=== PATIENT | female | born 1980 | race Caucasian/White ===

== ENCOUNTER 2024-06-21 13:23 | Outpatient (CLI) | payer MEDICARE, SELFPAY ==
--- NOTE | 2024-06-21 13:26 | MM_ITS ---
PROCEDURE INFORMATION: Exam: MG Bilateral Screening 3D Mammography Exam date and time: 06/21/2024 1:09 PM Age: 44 years old Clinical indication: Screening examination TECHNIQUE: Imaging protocol: Bilateral Screening tomosynthesis and 2D mammography including computer-aided detection (CAD) when performed. COMPARISON: No relevant prior studies available. FINDINGS: MAMMOGRAPHY: Breast composition: The breasts are almost entirely fatty. Mass: None. Architectural distortion: None. Calcifications: No suspicious calcifications. Asymmetric density: None. Skin thickening: None. Axillary adenopathy: None. IMPRESSION: No mammographic evidence of malignancy. Annual screening is recommended unless otherwise clinically indicated. ASSESSMENT: BI-RADS Category 1: Negative.
== END 2024-06-21 23:59 | disposition home or self-care (01) ==
LOC: RAD 13:24
PROVIDERS: PCP Nurse Practitioner Family; Visit Provider Nurse Practitioner Family
DX: Z12.31 Encounter for screening mammogram for malignant neoplasm of breast (principal)
CPT/HCPCS: 77063; 77067

== ENCOUNTER 2024-09-23 08:42 | Outpatient (CLI) | payer MEDICARE, SELFPAY ==
[2024-09-23 09:18] LABS: Basophils % 0.4 % (0.1-2.0); Eosinophils # 0.1 K/mm3 (0.0-0.4); Eosinophils % 1.3 % (0.1-12.0); Hematocrit 41.8 % (37.0-47.0); Hemoglobin 14.1 g/dL (12.2-16.2); Lymphocytes # 1.7 K/mm3 (0.7-4.5); Lymphocytes % 24.7 % (10-50); Mean Corpuscular HGB Conc 33.7 g/dL (31.8-35.4); Mean Corpuscular Hemoglobin 29.6 pg (27.0-31.2); Mean Corpuscular Volume 87.6 fl (81-99); Mean Platelet Volume 10.1 fl (7.4-10.4); Monocytes # 0.4 K/mm3 (0.1-1.0); Monocytes % 5.3 % (1.7-9.3); Neutrophils # 4.6 K/mm3 (1.8-7.8); Platelet Count 247 K/mm3 (142-424); Red Blood Count 4.77 M/mm3 (4.20-5.40); Red Cell Distribution Width 12.5 % (11.5-17.5); White Blood Count 6.7 K/mm3 (4.8-10.8)
[2024-09-23 09:45] LABS: Albumin Level 4.7 g/dl (3.5-5.0); Chloride 105 mmol/L (98-107)
[2024-09-23 09:46] LABS: Potassium 4.7 mmoL/L (3.5-5.1)
[2024-09-23 09:48] LABS: Alanine Aminotransferase 23 U/L (12-78); Aspartate Amino Transferase 25 U/L (14-36); Blood Urea Nitrogen 19 mg/dl (7-17); Carbon Dioxide 26 mmol/L (22.0-30.0); Estimated Glomerular Filt Rate 78 ml/min (>60); GFR (African American) 94 ML/MIN (>60)
[2024-09-23 09:49] LABS: Albumin/Globulin Ratio 1.9 (1.1-1.8); Alkaline Phosphatase 103 U/L (38-126); Bilirubin,Total 0.3 mg/dl (0.2-1.3); Calcium 9.6 mg/dl (8.4-10.2); Chol/HDL Ratio 4.7 (1-3.5); Cholesterol 236 mg/dl (140-200); Globulin 2.5 g/dL (1.3-3.2); Glucose 94 mg/dl (74-100); HDL Cholesterol 50 mg/dl (40-60); Total Protein,Serum 7.2 g/dl (6.3-8.2); Triglycerides 169 mg/dl (30-150); VLDL Cholesterol 34 mg/dL (0-40)
[2024-09-23 10:00] LABS: Direct LDL Cholesterol 152.81 mg/dL (100-129)
[2024-09-23 10:09] LABS: Anion Gap 11.7 mEq/L (5-15); Sodium 138 mmol/L (136-145)
[2024-09-23 10:17] LABS: Hemoglobin A1C 5.2 % (4.0-6.0)
[2024-09-23 10:20] LABS: Thyroid Stimulating Hormone 2.46 uIU/mL (0.465-4.68)
[2024-09-23 10:31] LABS: HIV Combo NEGATIVE (Negative)
[2024-09-26 17:15] LABS: HBsAg Screen Negative (Negative); HCV Ab Reactive (Non Reactive); Hep A Ab, IGM Negative (Negative); Hep B Core Ab, IgM Negative (Negative)
== END 2024-09-23 23:59 | disposition home or self-care (01) ==
LOC: LAB 08:45
PROVIDERS: PCP Internal Medicine Adolescent Medicine; Visit Provider Nurse Practitioner Family
DX: Z86.19 Personal history of other infectious and parasitic diseases (principal); R73.03 Prediabetes; E78.5 Hyperlipidemia, unspecified; R53.83 Other fatigue; F19.91 Other psychoactive substance use, unspecified, in remission
CPT/HCPCS: 36415; 80053; 80061; 80074; 83036; 84443; 85025; 87389

== ENCOUNTER 2024-11-15 09:23 | Emergency (ER) | payer MEDICARE, SELFPAY ==
[2024-11-15 09:24] VITALS: BP 150/95; PULSE 75; RESP 20; TEMP 36.5; O2SAT 98; BMI 33.7
[2024-11-15 10:02] VITALS: BP 153/94; PULSE 80; O2SAT 99
--- NOTE | 2024-11-15 10:08 | PC.NURSE ---
DR MAHMOOD AT BEDSIDE
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
[2024-11-15 10:32] VITALS: BP 150/95; PULSE 74; O2SAT 97
--- NOTE | 2024-11-15 11:17 | PC.NURSE ---
Myself and Christine Hutchinson tried to straight stick patient for blood, but we were both unsuccessful and asked maco the bowling ball finisher to take a look.
--- NOTE | 2024-11-15 11:37 | PC.NURSE ---
Patient straight stuck in L hand for lab work, all labs sent to lab. Patient also provided urine sample.
[2024-11-15 11:43] LABS: Basophils % 0.3 % (0.1-2.0); Eosinophils # 0.1 K/mm3 (0.0-0.4); Eosinophils % 1.9 % (0.1-12.0); Hematocrit 41.4 % (37.0-47.0); Hemoglobin 13.7 g/dL (12.2-16.2); Mean Corpuscular HGB Conc 33.1 g/dL (31.8-35.4); Mean Corpuscular Hemoglobin 29.5 pg (27.0-31.2); Mean Platelet Volume 10.3 fl (7.4-10.4); Monocytes # 0.3 K/mm3 (0.1-1.0); Monocytes % 3.9 % (1.7-9.3); Neutrophils # 4.5 K/mm3 (1.8-7.8); Neutrophils % 64.3 % (37.0-80.0); Platelet Count 225 K/mm3 (142-424); Red Blood Count 4.65 M/mm3 (4.20-5.40); Red Cell Distribution Width 12.9 % (11.5-17.5)
[2024-11-15 11:51] LABS: Alanine Aminotransferase 41 U/L (12-78); Albumin Level 4.9 g/dl (3.5-5.0); Albumin/Globulin Ratio 2.1 (1.1-1.8); Alkaline Phosphatase 82 U/L (38-126); Aspartate Amino Transferase 36 U/L (14-36); Bilirubin,Total 0.3 mg/dl (0.2-1.3); Blood Urea Nitrogen 11 mg/dl (7-17); Calcium 9.3 mg/dl (8.4-10.2); Carbon Dioxide 26 mmol/L (22.0-30.0); Chloride 108 mmol/L (98-107); Creatine Kinase 114 U/L (30-135); Creatinine Clearance Estimated 145 mL/min (50-200); Estimated Glomerular Filt Rate 91 ml/min (>60); GFR (African American) 110 ML/MIN (>60); Globulin 2.3 g/dL (1.3-3.2); Glucose 128 mg/dl (74-100); Sodium 142 mmol/L (136-145); Total Protein,Serum 7.2 g/dl (6.3-8.2)
[2024-11-15 11:52] LABS: Lactic Acid 1.7 mmol/L (0.7-2.1)
[2024-11-15 11:56] LABS: D-Dimer 0.26 ug/mL (0.0-0.5)
[2024-11-15 12:02] LABS: NT Pro Brain Natriuretic Pep. 23.8 pg/mL (0-125)
[2024-11-15 12:45] VITALS: BP 125/79; PULSE 98; RESP 20; TEMP 36.8; O2SAT 98
== END 2024-11-15 12:47 | disposition home or self-care (01) ==
PROVIDERS: Emergency Provider Emergency Medicine; PCP Internal Medicine Adolescent Medicine
DX: M54.50 Low back pain, unspecified (principal); M79.605 Pain in left leg; R22.42 Localized swelling, mass and lump, left lower limb
CPT/HCPCS: 80053; 82550; 83605; 83880; 85025; 85378; 99283

== ENCOUNTER 2024-11-25 07:39 | Outpatient (CLI) | payer MEDICARE, SELFPAY ==
--- NOTE | 2024-11-25 | CA_ITS ---
APPROVED REPORT EXAM: Comprehensive 2D, Doppler, and color-flow Echocardiogram [employer] Supervisor: Carlie Luque RT(R) Ht: 5 ft 6 in Wt: 196lbs BSA: 1.98 BP: 150/95 mmHg Indications: CP, smoker, palpitations, fatigue, edema, SOB, hyperlipidemia Echo Enhancing Agent Indication: Rule out Shunt Agent(s) / Amount(s) Used: Agitated Saline 20 cc 2D Dimensions LVEF (Dobbins's) 44.30 % F: 54 - 74 LV Volume 98.10 mL F: 46 - 106 LV Volume Index 49.5 mL/m2 F: 29 - 61 LA Volume 19.80 mL LA Volume Index 10.00 mL/m2 (M/F) 16-34 EF AP4 55.40 % EF AP2 40.8 % EF BP 44.3 % GL Strain -16.7 % M-Mode Dimensions RVDd 1.82 cm (0.9-2.6) LA Diam 2.98 cm (1.9-4.0) LVDd 4.51 cm (3.5-5.7) LVDs 3.40 cm (3.5-5.7) IVSd 0.82 cm (0.6-1.1) PWd 0.86 cm (0.6-1.1) EF (Teich) 49.00% FS 24.60% EDV (Teich) 92.90 mL ESV (Teich) 47.40 mL LV Diastology E Decel Time 177 (160-240 msec) E/A Ratio 1.2 Mitral Valve MV E Max Jose A. 82.0 (40-130 cm/s) MV A Velocity 66.0 (40-130 cm/s) E/A Ratio 1.24 MV PHT 52.0 ms Left Ventricle The left ventricle is normal size. The left ventricular systolic function is normal. The left ventricular ejection fraction is within the normal range. There is normal left ventricular wall thickness. There is normal LV segmental wall motion. The left ventricular diastolic function is normal. LVEF is 55%. Right Ventricle The right ventricle is normal size. The right ventricular systolic function is normal. Atria The left atrium size is normal. The right atrium size is normal. There is no Doppler evidence of interatrial shunt. Agitated saline administration demonstrates presence of interatrial shunt. Aortic Valve Aortic valve opens well. There is no aortic valvular stenosis. No aortic regurgitation is present. Mitral Valve The mitral valve is normal in structure. No evidence of mitral valve stenosis. Trace mitral regurgitation. Tricuspid Valve Tricuspid valve is grossly normal in structure and function. Trace tricuspid regurgitation. There is insufficient TR jet to estimate RVSP. Pulmonic Valve The pulmonary valve is normal in structure. Trace pulmonic regurgitation. Great Vessels The aortic root is normal in size. IVC is normal in size and collapses >50% with inspiration. Pericardium There is no pericardial effusion. Other Information Study Quality: Fair Conclusion Normal biventricular size and systolic function. No significant valvular stenosis or regurgitation. Agitated saline administration (bubble study) demonstrates presence of interatrial shunt. Electronically signed by : Smitha Beckham MD 12/04/2024 21:32:45
== END 2024-11-25 23:59 | disposition home or self-care (01) ==
LOC: RT 07:40
PROVIDERS: PCP Nurse Practitioner Family; Visit Provider Nurse Practitioner Family
DX: R60.0 Localized edema (principal); R06.02 Shortness of breath
CPT/HCPCS: 93306

== ENCOUNTER 2025-04-26 09:42 | Outpatient (CLI) | payer MEDICARE, SELFPAY ==
--- OUTSIDE RECORDS SUMMARY | 2025-03-07 07:15 | XMS_ITS ---
Author Organization [facility] Address [address] [facility] [address] [facility] [address] [place] [address] Care Team Providers Care Dewer Name Role Phone Ernesto Kenney Primary Care Provider Ernesto Kenney Unavailable Unavailable Alisha Yu Unavailable [phone] REASON FOR VISIT Med Ck Encounters Encounter Location Date Provider Diagnosis [facility] [address] [facility] [address] [place] [address] 03/07/2025 Alisha Yu Plan Of Treatment Next Appt Details Provider Name:Alisha Wood, 06/27/2025 08:30:00 AM, [address] [facility], [address], [place], [place], [address], Progress Notes * Marion MILLERDOB:[birth year] (44 yo F)Acc No.[id number]:03/07/2025 Progress Notes Patient: Marion DEAL Provider: Donald Yu APRN :1980 A ge:44 Y S ex:Female Date:03/07/2025 Address:[address] [place] Pcp:Ernesto Kenney Subjective: * Chief Complaints: * 1 . Med Ck. * Medical History: Objective: * Vitals: Assessment: Plan: * Treatment: * * Electronic signature of Nia Yu APRN on 04/26/2025 at 09:50 AM EDT Sign off status: Pending * Provider: Donald Yu APRN Date: 0 03/07/2025 Generated for Estela stiles/Bhavehs/Orion on: 0 04/26/2025 09:50 AM EDT
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
--- OUTSIDE RECORDS SUMMARY | 2025-04-05 09:23 | XMS_ITS | Encounter Summary ---
Author Organization Healthcare Address [address] [place] [address] Care Team Providers Care Independent Trader Name Role Phone Alisha Gutierrez MIGUEL Primary Care Provider [phone] Reason for Referral * Cardiac Stress Testing (Routine) - Closed Specialty Diagnoses / Procedures Referred By Contac t Referred To Contact Cardiology Diagnoses Palpitations Procedures Adult Patch Monitor - 14 Day Chester Nazario MD [address] [place] [address] Phone: tel: fax: Referral ID Status Reason Start Date Expiration Date Visits Re quested Visits Authorized [id number] Closed 04/05/2025 10/05/2026 1 1 Reason for Visit * Cardiac Stress Testing (Routine) - Closed Specialty Diagnoses / Procedures Referred By Crow munroe Referred To Contact Cardiology Diagnoses Palpitations Procedures Adult Patch Monitor - 14 Day Chester Nazario MD [address] [place] [address] Phone: tel: fax: Referral ID Status Reason Start Date Expiration Date Visits Re quested Visits Authorized [id number] Closed 04/05/2025 10/05/2026 1 1 Encounter Details Date Type Department Care Team (Latest Contact Info) Description 04/05/2025 9:23 AM EDT - 04/05/2025 11:59 PM EDT Hospital Encounter Cardiac Imaging [address] [place] [address] Palpitations Discharge Disposition: Home or Self Care Social History Tobacco Use Types Packs/Day Years Used Date Smoking Tobacco: Every Day Cigarettes Started: 2009 Smokeless Tobacco: Never Alcohol Use Standard Drinks/Week Comments Not Currently [...] on file documented as of this encounter Functional Status * Over the [...] Questionnaire -9 Score 0 04/05/2025 8:15 AM EDT Indy Ochoa * If you checked off any problems on this questionnaire so far, Question Answer Date of Assessment Author How difficult have these problems made it for you to do your work, take care of things at home, or get along with other people? Not difficult at all 04/05/2025 8:15 AM EDT Indy Ochoa documented as of this encounter Medications at Time of Discharge amitriptyline (Elavil) 75 MG tablet Take 1 tablet by mouth nightly. furosemide (Lasix) 20 MG tablet Take 1 tablet by mouth daily. gabapentin (Neurontin) 600 MG tablet Take 1 tablet by mouth 3 times a day. meloxicam (Mobic) 15 MG tablet Take 1 tablet by mouth daily. 07/28/2024 ondansetron ODT (Zofran-ODT) 4 MG disintegrating tablet Dissolve 1 tablet on the tongue every 8 hours as needed for vomiting or nausea. 04/15/2024 rosuvastatin (Crestor) 10 MG tablet Take 1 tablet by mouth daily. SUMAtriptan (Imitrex) 100 MG tablet Take 1 tablet by mouth 1 time as needed for migraine. 07/28/2024 documented as of this encounter Plan of Treatment Upcoming Encounters Date Type Department Care Team (Late st Contact Info) Description 05/12/2025 11:00 AM EDT Appointment [facility] Pulmonary Function Testing [address] [place] [address] 07/12/2025 12:45 PM EDT Office Visit [facility] [address] [facility] [place] [address] Chester Nazario MD [address] [place] [address] Pending Results Name Type Priority Associated Diagnoses Date /Time Adult Patch Monitor - 14 Day Cardiac Services Routine Palpitations 04/05/2025 9:39 AM EDT Scheduled Orders Name Type Priority Associated Diagnoses Orde r Schedule Adult Patch Monitor - 14 Day Cardiac Services Routine Palpitations Once for 1 Occurrences starting 04/05/2025 until 04/05/2025 documented as of this encounter Visit Diagnoses Diagnosis Palpitations documented in this encounter Additional Health Concerns Assessment Noted Time PHQ-9 Depression Total Score: 0 04/05/20 8:15 AM EDT A fall risk assessment has been complete d for the patient 04/05/2025 8:15 AM EDT A Body Mass Index follow-up plan has been documented for the patient 04/05/2025 10:32 AM EDT documented as of this encounter Care Teams Independent Trader Relationship Specialty Start Date End Date Alisha Gutierrez APRN [address] [place] [address] PCP - General 04/05/25 documented as of this encounter
--- OUTSIDE RECORDS SUMMARY | 2025-04-25 05:00 | XMS_ITS ---
Author Organization [facility] Address [address] [place] [address] Care Team Providers Care Card Checker Name Role Phone Ernesto Kenney Primary Care Provider [phone] Ernesto Kenney Unavailable Unavailable Alisha Yu Unavailable [phone] Allergies Allergen (clinical drug ingredient) Drug/Non Drug Allergy documented on EMR Reaction Allergy Type Onset Date Status naproxen Naproxen anaphylaxis Drug Allergy Activ e REASON FOR VISIT Possible sprained ankle, rolled foot off step about 4 weeks ago. Medications Medication SIG (Take, Route, Frequency, Duration) Notes Start Date End Date Status Gabapentin 600 MG 1 tab(s) orally 3 ti mes a day; Duration: 30 days 03/06/2025 Active Amitriptyline HCl 75 MG 1 tab(s) orally once a day (at bedtime); Duration: 90 days Active Meloxicam 15 MG 1 tablet Orally Once a day; Duration: 90 days 01/16/2025 Active Crestor 10 MG 1 tab(s) orally at night; Duration: 90 days 09/23/2024 Active Imitrex 100 MG 1 tab(s) orally Once a day; Duration: 30 days As needed PRN Active Furosemide 20 MG 1 tab(s) orally once a day; Duration: 90 days As needed 11/17/2024 Active Fluticasone Propionate 50 MCG/ACT 1 spray(s) in each nostril once a day; Duration: 30 days Active Allergy Relief (Cetirizine) 10 MG 1 tab(s) orally once a day; Duration: 90 days Active Social History Tobacco Use: Social History Observation Description Date Details (start date - stop date) Current Smoker NA - NA Tobacco Control (Standard) Question Answer Notes Tobacco use: Current smoker How many cigarettes a day do you smoke? 6-10 Vital Signs Temperature 98.0 degrees Fahrenheit 04/25/20 25 Blood pressure systolic 126 mm Hg 04/25/20 25 Blood pressure diastolic 84 mm Hg 025 Heart Rate 72 /min 04/25/2025 Height 5ft 6in in 04/25/2025 Weight 187 lbs 04/25/2025 BMI 30.18 kg/m2 04/25/2025 Encounters Encounter Location Date Provider Diagnosis [facility] [address] [place] [address] 04/25/2025 Alisha Yu Acute left ankle pain M25.572 and Acute pain of left foot M79.672 Assessments Encounter Date Diagnosis (ICD Code) Assessment Notes Treatment Notes Treatment Clinical Notes Section Notes 04/25/2025 Acute left ankle pain (ICD-10 - M25.572) Likely related to ankle sprain. Given her point tenderness on medial malleolus on 1st MP will obtain xray Rest, ice, elevate, brace and meloxicam as above. Okay to use tylenol prn. Will evaluate xray and refer as indicated 04/25/2025 Acute pain of left foot (ICD-10 - M79.672) Plan Of Treatment Treatment Notes Assessment Notes Acute left ankle pain Likely related to ankle sprain. Given her point tenderness on medial malleolus on 1st MP will obtain xray Rest, ice, elevate, brace and meloxicam as above. Okay to use tylenol prn. Will evaluate xray and refer as indicated Pending Test Test Name Order Date X ray : Ankle, Left 04/25/2025 X ray : Foot, Left 04/25/2025 Next Appt Details Follow Up: prn, Reason: Provider Name:Alisha Gutierrez Francisco Daly, 06/27/2025 08:30:00 AM, [address], [address], [place], [address], Progress Notes * Aristides MILLER:[birth year] (44 yo F)Acc No.[id number]:04/25/2025 Progress Notes Patient: Marion DEAL Provider: Donald Yu APRN :1980 A ge:44 Y S ex:Female Date:04/25/2025 Address:[place], [id number] Pcp:Ernesto Kenney Subjective: * Chief Complaints: * 1 . Possible sprained ankle, rolled foot off step about 4 weeks ago.. * HPI: A nkle/Foot: Presents with left medial ankle pain that began 4 weeks ago when she rolled her ankle stepping down off a step. Acute onset of pain. No improvement since onset. Worse with ambulation and at the end of the day. + numbness/tingling left 3rd- 5th toes. * ROS: C ONSTITUTIONAL: no L oss of appetite. n o F ever. N EUROLOGY: Tingling numbness y es, l eft 3rd-5th toes. ? * Medical History: M igraine, MDD, Anxiety and Depression, Renal Failure, sepsis, Prediabetes, Kidney Stones. * Surgical History: L eft Ankle 2001, Right Leg BKA 2004, Total Hysterectomy 2011, Nerve Stimulator implanted and then removed 2009, Left Knee Scar Tissue Removal 2006. * Hospitalization/Major Diagno stic Procedure: [facility] , [facility] , [facility] . * Family History: F ather: unknown. M other: alive. P aternal Grand Father: unknown. P aternal Grand Mother: unknown. M aternal Grand Father: . M aternal Grand Mother: . P aternal uncle: unknown. P aternal aunt: unknown. M aternal uncle: alive. M aternal aunt: alive. S iblings: alive, High Cholesterol. 1 sister(s) - healthy. 1 daughter(s) . . * Social History: R ecreational drug use: yes, Past use: Previously. Exercise: no. Home smoke detector use: yes. Caffeine: yes, frequency: Daily. Alcohol: no. Sexually active: yes. Travel outside [place]: no. Occupation: Employed. Tobacco Control (Standard) T obacco use: C urrent smoker, H ow many cigarettes a day do you smoke? 6 -10. * Medications: T aking Fluticasone Propionate 50 MCG/ACT Suspension 1 spray(s) in each nostril once a day , Taking Allergy Relief (Cetirizine) 10 MG Tablet 1 tab(s) orally once a day , Taking Imitrex 100 MG Tablet 1 tab(s) orally Once a day As needed, Notes to Pharmacist: PRN, Taking Crestor 10 MG Tablet 1 tab(s) orally at night , Taking Gabapentin 600 MG Tablet 1 tab(s) orally 3 times a day , Taking Meloxicam 15 MG Tablet 1 tablet Orally Once a day , Taking Amitriptyline HCl 75 MG Tablet 1 tab(s) orally once a day (at bedtime) , Taking Furosemide 20 MG Tablet 1 tab(s) orally once a day As needed, Discontinued Erythromycin 5 MG/GM Ointment 1 andrew in each affected eye 4 times a day , Discontinued Lidocaine 5 % Patch 1 to 2 patches remove after 12 hours Externally Once a day As needed, Medication List reviewed and reconciled with the patient * Allergies: N aproxen: anaphylaxis. Objective: * Vitals: N urse: be, Pain: 3, Temp: 98.0, RR: 16, HR: 72, BP: 126/84, Ht: 5ft 6in, Wt: 187, BMI:30.18. * Examination: G eneral Examination: General P leasant and Cooperative, NAD on RA,. Neurologic Exam: s ensation intact. Skin: w ithout acute rashes. Peripheral pulses: n ormal (2+) bilaterally. Extremities: L eft ankle with medial swelling and tenderness all aspects of joint line, medial malleolus and 1st MT, pain with flexion, extension, inversion, eversion. Psych N ormal Mood/Affect. Assessment: * Assessment: 1. A cute left ankle pain - M25.572 (Primary) 2 . A cute pain of left foot - M79.672 Plan: * Treatment: Notes: Likely related to ankle sprain. Given her point tenderness on medial malleolus on 1st MP will obtain xray Rest, ice, elevate, brace and meloxicam as above. Okay to use tylenol prn. Will evaluate xray and refer as indicated??2.?Acute pain of left foot?Imaging: X ray : Foot, Left* * Follow Up: p rn * * Sign off status: Completed true * Provider: Donald Yu APRN Date: 0 04/25/2025 Generated for Estela stiles/Bhavesh/eTransmitting on: 0 04/26/2025 09:50 AM EDT History and Physical Notes * HPI (History of Present Illness) Category Sub-Category Detail Notes Category Not es Ankle/Foot Presents with l eft medial ankle pain that began 4 weeks ago when she rolled her ankle stepping down off a step. Acute onset of pain. No improvement since onset. Worse with ambulation and at the end of the day. + numbness/tingling left 3rd-5th toes Examination Category Sub-Category Detail Notes Category Not es General Examination Extremities: Left ankle w ith medial swelling and tenderness all aspects of joint line, medial malleolus and 1st MT, pain with flexion, extension, inversion, eversion Skin: without acute rashes Neurologic Exam: sensation intact Peripheral pulses: normal (2+) bilatera lly General Pleasant and Coopera tive, NAD on RA, Psych Normal Mood/Affect
--- OUTSIDE RECORDS SUMMARY | 2025-04-26 09:50 | XMS_ITS | Patient Health Record ---
Author Organization [facility] Address [address] [place] [address] Care Team Providers Care Director Of Customer Acquisition Name Role Phone Ernesto Kenney Primary Care Provider [phone] Ernesto Kenney Unavailable Unavailable Alisha Yu Unavailable [phone] Migration, Provider Unavailable Unavailable Allergies Allergen (clinical drug ingredient) Drug/Non Drug Allergy documented on EMR Reaction Allergy Type Onset Date Status naproxen Naproxen anaphylaxis Drug Allergy Activ e Results Component Value Reference Range Notes H-HIVC Reviewed date:09/23/2024 11:36:09 AM Interpretation: Performing Lab: Notes/Report: HIVC NEGATIVE Negative All initial positives will be confirmed by 2 retests, if still positive they will be confirmed by [facility] Sendout. H-HEPACUTE Reviewed date:09/27/2024 03:07:15 PM Interpretation: Performing Lab: Notes/Report: The quantitative range of this assay is 15 IU/mL to 100 Positive HCV antibody screen without the presence of HCV million IU/mL. RNA is consistent with a resolved past infection or a false positive HCV antibody. Consider repeat testing after one month. Performed at: [facility] [address] [id number] Electric Freight Car Operator: Emiliano Bonilla PhD, Phone: [phone] Performed at: [facility] [address] [id number] Electric Freight Car Operator: Jazmin Raman MD, Phone: [phone] HEPAM Negative Negative A negative anti-HAV IgM result suggests no recent or current HAV infection. HBSAG Negative Negative HBCM Negative Negative HCVAB2 Reactive Non Reactive HCQ HCV Not Detected . IU/mL MEDtub43 Test not performed . IU/mL TESTINFO Comment . HCVINT1 Comment . B TYPE NATRIURETIC PEPTIDE ( BNP) (16274) Reviewed date:11/18/2024 02:29:05 PM Interpretation: Performing Lab:[facility] [id number] Whyd, Manohar [id number] Kang Sheriff Notes/Report: NON-FASTING; NON-FASTING B TYPE NATRIURETIC PEPTIDE (BNP) 6 <100 pg/mL BNP levels increase with age in the general population with the highest values seen in individuals greater than 75 years of age. Reference: J. Am. Krystal. Cardiol. 2002; 40:976-982. HEMOGLOBIN A1c (496) Reviewed date:11/18/2024 02:29:05 PM Interpretation: Performing Lab:[facility] [id number] [address] Whyd, [facility] [id number] Kang Sheriff Notes/Report: NON-FASTING; NON-FASTING HEMOGLOBIN A1c 5.4 <5.7 % of total Hgb For the purpose of screening for the presence of diabetes: <5.7% Consistent with the absence of diabetes 5.7-6.4% Consistent with increased risk for diabetes (prediabetes) > or =6.5% Consistent with diabetes This assay result is consistent with a decreased risk of diabetes. Currently, no consensus exists regarding use of hemoglobin A1c for diagnosis of diabetes in children. According to [place] [employer] (ADA) guidelines, hemoglobin A1c <7.0% represents optimal control in non- diabetic patients. Different metrics may apply to specific patient populations. Standards of Medical Care in Diabetes(ADA). COMPREHENSIVE METABOLIC PANE L (28693) Reviewed date:11/18/2024 02:29:05 PM Interpretation: Performing Lab:[facility] [id number] [address] [facility], [place] [id number] Kang Sheriff Notes/Report: NON-FASTING; NON-FASTING GLUCOSE 97 65-99 mg/dL Fasting reference interval UREA NITROGEN (BUN) 12 7-25 mg/dL CREATININE 0.85 0.50-0.99 mg/dL EGFR 87 > OR = 60 mL/min/1.73m2 BUN/CREATININE RATIO SEE NOTE: 6-22 (calc) Not Reported: BUN and Creatinine are within reference range. SODIUM 140 135-146 mmol/L POTASSIUM 4.1 3.5-5.3 mmol/L CHLORIDE 104 98-110 mmol/L CARBON DIOXIDE 26 20-32 mmol/L CALCIUM 9.7 8.6-10.2 mg/dL PROTEIN, TOTAL 6.9 6.1-8.1 g/dL ALBUMIN 4.6 3.6-5.1 g/dL GLOBULIN 2.3 1.9-3.7 g/dL (calc) ALBUMIN/GLOBULIN RATIO 2.0 1.0-2.5 (calc) BILIRUBIN, TOTAL 0.4 0.2-1.2 mg/dL ALKALINE PHOSPHATASE 97 31-125 U/L AST 21 10-30 U/L ALT 28 6-29 U/L M-Thyroid Stimulating Hormon e Reviewed date:09/23/2024 11:36:09 AM Interpretation: Performing Lab: Notes/Report: TSH 2.46 0.465-4.68 uIU/mL M-Lipid Panel Reviewed date:09/23/2024 11:36:09 AM Interpretation: Performing Lab: Notes/Report: Patient Fasting? Y TRIG 169 30-150 mg/dl CHOL 236 140-200 mg/dl DLDL 152.81 100-129 mg/dL VLDL 34 0-40 mg/dL HDL 50 40-60 mg/dl CHLHDL 4.7 1-3.5 M-Hemoglobin A1C Reviewed date:09/23/2024 11:36:09 AM Interpretation: Performing Lab: Notes/Report: HGBA1C 5.2 4.0-6.0 % < 6% Non-Diabetic Level < 7% Controlled Diabetic Level > 8% Poorly Controlled Diabetic Level M-Comprehensive Metabolic Pa quang Reviewed date:09/23/2024 11:36:09 AM Interpretation: Performing Lab: Notes/Report: NA 138 136-145 mmol/L K 4.7 3.5-5.1 mmoL/L CL 105 98-107 mmol/L CO2 26 22.0-30.0 mmol/L GAP 11.7 5-15 mEq/L BUN 19 7-17 mg/dl CREATT 0.80 0.52-1.04 mg/dl GFRAA 94 >60 ML/MIN EGFR 78 >60 ml/min GLU 94 74-100 mg/dl CA 9.6 8.4-10.2 mg/dl BILIT 0.3 0.2-1.3 mg/dl AST 25 14-36 U/L ALT 23 12-78 U/L TP 7.2 6.3-8.2 g/dl ALB 4.7 3.5-5.0 g/dl GLOB 2.5 1.3-3.2 g/dL AGRATIO 1.9 1.1-1.8 ALP 103 38-126 U/L M-Complete Blood Count Auto Diff Reviewed date:09/24/2024 11:18:01 AM Interpretation: Performing Lab: Notes/Report: WBC 6.7 4.8-10.8 K/mm3 RBC 4.77 4.20-5.40 M/mm3 HGB 14.1 12.2-16.2 g/dL HCT 41.8 37.0-47.0 % MCV 87.6 81-99 fl MCH 29.6 27.0-31.2 pg MCHC 33.7 31.8-35.4 g/dL RDW 12.5 11.5-17.5 % PLT 247 142-424 K/mm3 MPV 10.1 7.4-10.4 fl NE% 68.0 37.0-80.0 % LY% 24.7 10-50 % MO% 5.3 1.7-9.3 % EO% 1.3 0.1-12.0 % BA% 0.4 0.1-2.0 % NE# 4.6 1.8-7.8 K/mm3 LY# 1.7 0.7-4.5 K/mm3 MO# 0.4 0.1-1.0 K/mm3 EO# 0.1 0.0-0.4 K/mm3 BA# 0.0 0-0.2 K/mm3 Reason For Referral Reason Echo Diagnosis 1 Leg edema (R60.0) Referral Organization [facility] Referring Provider First Name Alisha Referring Provider Last Name Aimee Referring Provider Speciality Family Pra ctice Referred Organization [facility] Referred Address [address],[address],[place] Referred Provider Specialty Diagnostic R adiology General Notes Taryn Rascon 2024 05:11:52 PM >faxed to [facility] to schedule Referral Priority Routine Referral Appointment Date 11/25/[address] Nazario [facility] Diagnosis 1 ASD (atrial septal d efect) (Q21.10) Referral Organization [facility] Referring Provider First Name Alisha Referring Provider Last Name Aimee Referring Provider Speciality Family [facility] Referred Organization Referrals Referred Address [address] [place],[address],[place] Referred Provider Specialty Cardiovascul ar Disease General Notes Taryn Rascon 2024 02:30:33 PM >placed through [facility], Taryn Rascon 02/22/2025 03:01:21 PM >sent again! Called [facility] and they could see the referral but it hadn't moved in their dept. They canceled it and started all over. Marked STAT Taryn Rascon 02/24/2025 02:27:15 PM >Scheduled 04/05/2025 8:15 AM [facility] Chester Nazario MD Consult-Card Referral Priority Routine Referral Appointment Date 04/05/2025 Medications Medication SIG (Take, Route, Frequency, Duration) Notes Start Date End Date Status Gabapentin 600 MG 1 tab(s) orally 3 ti mes a day; Duration: 30 days 03/06/2025 Active Amitriptyline HCl 75 MG 1 tab(s) orally once a day (at bedtime); Duration: 90 days Active Meloxicam 15 MG 1 tablet Orally Once a day; Duration: 90 days 01/16/2025 Active Furosemide 20 MG 1 tab(s) orally once a day; Duration: 90 days As needed 11/17/2024 Active Fluticasone Propionate 50 MCG/ACT 1 spray(s) in each nostril once a day; Duration: 30 days Active Allergy Relief (Cetirizine) 10 MG 1 tab(s) orally once a day; Duration: 90 days Active Crestor 10 MG 1 tab(s) orally at night; Duration: 90 days 09/23/2024 Active Imitrex 100 MG 1 tab(s) orally Once a day; Duration: 30 days As needed PRN Active Immunizations Vaccine Route Administration Date Status Comme nts Boostrix IM Intramuscular 08/23/2024 Administered Social History Tobacco Use: Social History Observation Description Date Details (start date - stop date) Current Smoker NA - NA Tobacco Control (Standard) Question Answer Notes Tobacco use: Current smoker How many cigarettes a day do you smoke? 6-10 Problems Problem Type SNOMED Code ICD Code Onset Dates Problem Status W/U Status Risk Notes Problem Primary insomnia (6160661) Primary insomnia (F51.01) Active confirmed Problem Mixed anxiety and depressive disorder (770061380) Depression with anxiety (F41.8) Active confirmed Problem Neuropathy (818016475) Neuropathy (G62.9) Active confirmed Problem Seasonal allergy (817238195) Seasonal allergies (J30.2) Active confirmed Problem Migraine with aura (1154436) Migraine with aura and without status migrainosus, not intractable (G43.109) Active confirmed Problem Hyperlipidaemia (05588881) Hyperlipidemia, unspecified hyperlipidemia type (E78.5) Active confirmed Problem Tobacco use (993803326) Tobacco use disorder (F17.200) Active confirmed Problem Amputated below knee (506501254) 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) Active confirmed Problem Atrial septal defect (disorder) (93269136) ASD (atrial septal defect) (Q21.10) Active confirmed Vital Signs Heart Rate 72 /min 04/25/2025 Temperature 98.0 degrees Fahrenheit 04/25/2025 Blood pressure diastolic 84 mm Hg 04/25/2025 Height 5ft 6in in 04/25/2025 Blood pressure systolic 126 mm Hg 04/25/2025 Weight 187 lbs 04/25/2025 BMI 30.18 kg/m2 04/25/2025 Encounters Encounter Location Date Provider Diagnosis [facility] [address] [facility] [address] [place], [place] [address] 12/17/2024 Provider Migration Hordeolum externum of left upper eyelid H00.014 [facility] [address] [place], [place] [address] 08/23/2024 Alisha Yu Encounter for Medica re annual wellness exam Z00.00 ; Migraine with aura and without status migrainosus, not intractable G43.109 ; Primary insomnia F51.01 ; Neuropathy G62.9 ; Depression with anxiety F41.8 ; Hx of right BKA Z89.511 ; Seasonal allergies J30.2 ; Encounter for immunization Z23 ; Prediabetes R73.03 ; Hyperlipidemia, unspecified hyperlipidemia type E78.5 ; Fatigue, unspecified type R53.83 ; History of hepatitis C Z86.19 ; History of drug use F19.91 and Tobacco use disorder F17.200 [facility] [address] [place] [address] 10/04/2024 Alisha McNees Neuropathy G62.9 ; H x of right BKA Z89.511 and History of drug use F19.91 [facility] [address] [place] [address] 11/17/2024 Alisha McNees Leg edema R60.0 ; Shortness of breath R06.02 and Hyperglycemia R73.9 [facility] [address] [place] [address] 12/06/2024 Alisha McNees ASD (atrial septal defect) Q21.10 and Hordeolum externum of left upper eyelid H00.014 [facility] [address] [address] 03/06/2025 Alisha McNees Migraine with aura a nd without status migrainosus, not intractable G43.109 ; Primary insomnia F51.01 ; Neuropathy G62.9 ; Hx of right BKA Z89.511 ; Seasonal allergies J30.2 ; Hyperlipidemia, unspecified hyperlipidemia type E78.5 ; History of drug use F19.91 and Tobacco use disorder F17.200 [facility] [address] [place] [address] 04/25/2025 Alisha McNees Acute left ankle alexander n M25.572 and Acute pain of left foot M79.672 [facility] [address] [place] [address] 08/16/2024 Ernesto Kenney [facility] [address] [place] [address] 09/23/2024 Alisha McNees [facility] [address] [place] [address] 03/06/2025 Alisha McNees Leg edema R60.0 [facility] [address] [place] [address] 08/29/2024 Alisha McNees [facility] [address] [place] [address] 11/30/2024 Alisha McNees [facility] [address] [place] [address] 12/22/2024 Alisha McNees Seasonal allergies J30.2 [facility] [address] [place] [address] 12/22/2024 Alisha McNees Leg edema R60.0 [facility] [address] [place] [address] 12/28/2024 Ernesto Kenney [facility] [address] [place] [address] 01/16/2025 Alisha McNees Seasonal allergies J30.2 [facility] [address] [place] [address] 01/29/2025 Alisha McNees [facility] [address] [place] [address] 02/08/2025 Alisha McNees Leg edema R60.0 Assessments Encounter Date Diagnosis (ICD Code) Assessment Notes Treatment Notes Treatment Clinical Notes Section Notes 08/23/2024 Migraine with aura and without status migrainosus, not intractable (ICD-10 - G43.109) Well controlled on triptan, uses rarely. Discussed hydration and need for regular, balanced meals, outdoor activities/exercis e and trigger (sunlight) etc - avoidance. Discussed using abortive meds rarely 08/23/2024 Encounter for Medicare annual wellness exam (ICD-10 - Z00.00) Mammogram UTD Tdap updated today Declines flu shot Pap- hysterectomy Will return to office for fasting labs 11/17/2024 Leg edema (ICD-10 - R60.0) ED records reviewed. Discussed weight gain, some may be from fluid but not likely the cause of all of it based on her exam. Will obtain echo and labs today. Start low dose lasix prn. Discussed need for diet, exercise. RTC in 2-3 weeks 12/06/2024 Hordeolum externum of left upper eyelid (ICD-10 - H00.014) Reassurance that this is not pink eye. Treatment is typically supportive care only with warm compresses, however given the upper lid swelling will start topical abx.. Should self-resolve within a few days. Discussed worsening signs/symptoms that would warrant further follow-up. 12/06/2024 ASD (atrial septal defect) (ICD-10 - Q21.10) LE edema improved with Lasix Echo revealed interatrial shunt, likely incidental finding but could be cause of SOA. Refer to Dr. Nazario for further recommendations. 12/17/2024 Hordeolum externum of left upper eyelid (ICD-10 - H00.014) 12/22/2024 Seasonal allergies (ICD-10 - J30.2) 12/22/2024 Leg edema (ICD-10 - R60.0) 01/16/2025 Seasonal allergies (ICD-10 - J30.2) 02/08/2025 Leg edema (ICD-10 - R60.0) 03/06/2025 Primary insomnia (ICD-10 - F51.01) Well controlled, no changes 10/04/2024 Neuropathy (ICD-10 - G62.9) Patient is chronically disabled restricting work hours to 32 hours per week. She may require accommodations for extending standing, walking given her BKA/neuropathy. No formal accommodations recommended today. FU in office is need for accommodations occurs. Paperwork for [employer] employment services completed, disability letter restricting hours written. 10/04/2024 Hx of right BKA (ICD-10 - Z89.511) 11/17/2024 Shortness of breath (ICD-10 - R06.02) 03/06/2025 Migraine with aura and without status migrainosus, not intractable (ICD-10 - G43.109) Well controlled on triptan, uses rarely. Discussed hydration and need for regular, balanced meals, outdoor activities/exercis e and trigger (sunlight) etc - avoidance. Discussed using abortive meds rarely 03/06/2025 Leg edema (ICD-10 - R60.0) 04/25/2025 Acute left ankle pain (ICD-10 - M25.572) Likely related to ankle sprain. Given her point tenderness on medial malleolus on 1st MP will obtain xray Rest, ice, elevate, brace and meloxicam as above. Okay to use tylenol prn. Will evaluate xray and refer as indicated 04/25/2025 Acute pain of left foot (ICD-10 - M79.672) 10/04/2024 History of drug use (ICD-10 - F19.91) Currently in remission. Resides in sober living housing program, attends meetings several days a week and follows with counselor. 03/06/2025 Neuropathy (ICD-10 - G62.9) At baseline on mobic and gabapentin. CSA UTD and on chart. Aftab report reviewed and is appropriate - discussed ongoing use of controlled medication and safety associated with these medications. Add lidocaine patches prn 08/23/2024 Primary insomnia (ICD-10 - F51.01) Well controlled, no changes 08/23/2024 Neuropathy (ICD-10 - G62.9) At baseline on mobic and gabapentin. CSA signed and placed on chart. Aftab report reviewed and is appropriate - discussed ongoing use of controlled medication and safety associated with these medications 11/17/2024 Hyperglycemia (ICD-10 - R73.9) 03/06/2025 Hx of right BKA (ICD-10 - Z89.511) 08/23/2024 Depression with anxiety (ICD-10 - F41.8) Managing well without medications at this time. Keep appointment with counselor. 03/06/2025 Seasonal allergies (ICD-10 - J30.2) Well controlled 03/06/2025 Hyperlipidemia, unspecified hyperlipidemia type (ICD-10 - E78.5) On statin, no myalgias. Continue crestor, low saturated fat diet 08/23/2024 Hx of right BKA (ICD-10 - Z89.511) 03/06/2025 History of drug use (ICD-10 - F19.91) See above 08/23/2024 Seasonal allergies (ICD-10 - J30.2) Reassurance no acute infection, start allergy meds as above 08/23/2024 Encounter for immunization (ICD-10 - Z23) 03/06/2025 Tobacco use disorder (ICD-10 - F17.200) Smoking cessation counseling provided 08/23/2024 Prediabetes (ICD-10 - R73.03) Will check A1c and treat as indicated 08/23/2024 Hyperlipidemia, unspecified hyperlipidemia type (ICD-10 - E78.5) Reports elevated cholesterol in the past. Will check fasting lipid panel and treat as indicated 08/23/2024 Fatigue, unspecified type (ICD-10 - R53.83) Chronic, intermittent. Likely benign, will check labs to r/o HIV, Hepatitis, DM, thyroid disease, anemia, etc 08/23/2024 History of hepatitis C (ICD-10 - Z86.19) Repeat hepatitis and HIV testing ordered for confirmation. Continue drug treatment program, counseling 08/23/2024 History of drug use (ICD-10 - F19.91) See above 08/23/2024 Tobacco use disorder (ICD-10 - F17.200) Smoking cessation counseling provided Plan Of Treatment Pending Test Test Name Order Date X ray : Ankle, Left 04/25/2025 X ray : Foot, Left 04/25/2025 Echocardiogram 11/17/2024 HIV 1/2 ANTIGEN/ANTIBODY,FOURTH GENERATI ON W/RFL (16413) 08/23/2024 LIPID PANEL, STANDARD (7600) 08/23/2024 HEPATITIS PANEL, ACUTE W/REFLEX TO CONFI RMATION (52658) 08/23/2024 COMPREHENSIVE METABOLIC PANEL (64878) CBC (INCLUDES DIFF/PLT) (6399) HEMOGLOBIN A1c (496) 08/23/2024 TSH (899) 08/23/2024 Next Appt Details Provider Name:Alisha Wood, 06/27/2025 08:30:00 AM, [address], [place], [address], Insurance Providers Payer Name Payer Address Payer Phone Subscriber Number Group Number Insured Name Patient Relationship to Insured Coverage Start Date Coverage End Date [place]IC[place] [address] [place] [address] [id number] Marion Hendrickson Self - patient is the insured Medical (General) History Medical History History ICD Code Migraine MDD Anxiety and Depression Renal Failure, sepsis Prediabetes Kidney Stones Surgical History Surgery Date(Month/Year) Left Ankle 2002 Right Leg BKA 2005 Total Hysterectomy 2012 Nerve Stimulator implanted and then kodi jeremias 2009 Left Knee Scar Tissue Removal 2007 [facility]
--- NOTE | 2025-04-26 09:51 | XR_ITS ---
FINAL REPORT CLINICAL HISTORY: ACUTE PAIN and swelling FINDINGS: LEFT ANKLE Three views demonstrate no acute fracture or dislocation. There are severe degenerative changes with complete loss of the joint space. Old avulsion fractures are seen of the medial and lateral malleolus. The visualized joint spaces are normally aligned. The soft tissues are unremarkable. IMPRESSION: Degenerative changes without acute bony abnormality. Reviewed, Interpreted and Dictated by Jael Dawson MD Transcribed by Libby Peralta Authenticated and [facility]
--- NOTE | 2025-04-26 09:51 | XR_ITS ---
FINAL REPORT CLINICAL HISTORY: pain and swelling FINDINGS: LEFT FOOT Three views of the left foot demonstrate no acute fracture or dislocation. The visualized joint spaces are normally aligned. The soft tissues are unremarkable. IMPRESSION: No acute bony abnormality. Reviewed, Interpreted and Dictated by Jael Dawson MD Transcribed by Libby Peralta Authenticated and [facility]
--- OUTSIDE RECORDS SUMMARY | 2025-04-26 09:51 | XMS_ITS | Encounter Summary ---
Author Organization Healthcare Address [address] [id number] Care Team Providers Care Compressor Operator Adjuster Name Role Phone Alisha Gutierrez APRN Primary Care Provider [phone] Encounter Details Date Type Department Care Team (Latest Contact Info) Description 04/05/2025 Travel Social History Tobacco Use Types Packs/Day Years [...] Not at all 04/05/2025 8: 15 AM EDT Indy Ochoa Feeling bad about yourself - or that you are a failure or have let yourself or your family down Not at all 04/05/2025 8:15 AM EDT Indy Flores Trouble concentrating on thi ngs, such as [...] Indy Torres documented as of this encounter Plan of Treatment Upcoming Encounters Date Type Department Care Team (Late st Contact Info) Description 05/12/2025 11:00 AM EDT Appointment [facility] Pulmonary Function Testing [address] [place] [address] 07/12/2025 12:45 PM EDT Office Visit [facility] [place] [address] [facility] [place] [address] Chester Nazario MD [address] [place] [id number] documented as of this encounter Visit Diagnoses Not on filedocumented in this encounter Additional Health Concerns Assessment Noted Time PHQ-9 Depression Total Score: 0 04/05/20 8:15 AM EDT A fall risk assessment has been complete d for the patient 04/05/2025 8:15 AM EDT A Body Mass Index follow-up plan has been documented for the patient 04/05/2025 10:32 AM EDT documented as of this encounter Care Teams Compressor Operator Adjuster Relationship Specialty Start Date End Date Alisha Gutierrez, POWDER CUTTING OPERATOR [address] [place] [address] PCP - General 04/05/25 documented as of this encounter
--- OUTSIDE RECORDS SUMMARY | 2025-04-26 09:51 | XMS_ITS | Clinical Summary ---
Author Organization Healthcare Address [address] [place] [address] Care Team Providers Care Forklift Technician Name Role Phone Alisha Gutierrez APRN Primary Care Provider [phone] Allergies Active Allergy Reactions Criticality Noted Date Comments Naproxen Unknown - Patient st ates they do not know rxn details Low 05/11/2024 Medications amitriptyline (Elavil) 75 MG tablet Take 1 tablet by mouth nightly. Active gabapentin (Neurontin) 600 MG tablet Take 1 tablet by mouth 3 times a day. Active meloxicam (Mobic) 15 MG tablet Take 1 tablet by mouth daily. 4 Active ondansetron ODT (Zofran-ODT) 4 MG disintegrating tablet Dissolve 1 tablet on the tongue every 8 hours as needed for vomiting or nausea. 4 Active SUMAtriptan (Imitrex) 100 MG tablet Take 1 tablet by mouth 1 time as needed for migraine. 4 Active rosuvastatin (Crestor) 10 MG tablet Take 1 tablet by mouth daily. Active furosemide (Lasix) 20 MG tablet Take 1 tablet by mouth daily. Active Active Problems No known active problems Encounters Date Type Department Care Team Description 04/05/2025 9:23 AM EDT - 04/05/2025 11:59 PM EDT Hospital Encounter Cardiac Imaging [address] [place] [address] Palpitations Discharge Disposition: Home or Self Care 04/05/2025 8:15 AM EDT Office Visit [facility] [address] [place] [address] Chester Nazario MD Abnormal finding on echocardiogram (Primary Dx); Palpitations; Shortness of breath; Tobacco abuse 04/05/2025 Travel 02/09/2025 Telephone [facility] [place] [address] [facility] [address] None, None HCN - Patient Message from Last 3 Months Immunizations Immunization Administration Dates Next Due Tdap 08/23/2024 Family History Medical History Relation Name Comments Heart disease Maternal Grandfather Relation Name Status Comments Maternal Grandfather Social History Tobacco Use Types Packs/Day Years [...] on file Sexual Orientation Not on file Last Filed Vital Signs Vital Sign Reading [...] Mass Index 30 04/05/2025 8:13 AM EDT Plan of Treatment Upcoming Encounters Date Type Department Care Team (Late st Contact Info) Description 05/12/2025 11:00 AM EDT Appointment [facility] Pulmonary Function Testing [address] [place] [address] 07/12/2025 12:45 PM EDT Office Visit [facility] [place] [address] [facility] [phone] Chester Nazario MD [address] [place] [address] Health Maintenance Due Date Last Done Comments [facility]-HIV Screening 1980 [facility]-Hepatitis C Screening 1980 [facility]-Medicare Annual Wellness (AWV) 1980 [facility]-Infant/Child/Adol SDOH Screenings 1980 [facility]-Varicella Vaccines (1 of 2 - 13+ 2-dose series) 1993 [facility]- SDOH Screenings 1998 [facility]-Adult SDOH Screenings 1998 [facility]-Hepatitis B Vaccines (1 of 3 - 19+ 3-dose series) 1999 [facility]-Pneumococcal Vaccine: Pediatrics (0 to 5 Years) and At-Risk Patients (6 to 49 Years) (1 of 2 - PCV) 1999 [facility]-Pap Smear 2001 HPV Vaccines (1 - 3-dose SCD M series) 2007 [facility]-Cervical Cancer Screening 2010 [facility]-HPV/Cotest 2010 [id number] Vaccine (1 - 2023- season) 2024 [facility]-Influenza Vaccine (#1) 2025 [facility]-Depression Screening 04/05/2026 025, 04/05/2025 [facility]-Zoster Vaccines (1 of 2) 2030 [facility]-DTaP,Tdap,and Td Vaccine s (2 - Td or Tdap) 08/23/2034 08/23/2024 [facility]-Obesity Intervention Completed 04/05/2025 [facility]-HIB Vaccines Aged Out No longer e ligible based on patient's age to complete this topic [facility]-Hepatitis A Vaccines Aged Out No longer eligible based on patient's age to complete this topic [facility]-IPV Vaccines Aged Out No longer e ligible based on patient's age to complete this topic [facility]-Rotavirus Vaccines Aged Out No lo nger eligible based on patient's age to complete this topic Insurance MEDICARE Member Subscriber Plan / Payer (Ef fective 2009-Present) Name:Marion Hendrickson Member ID:[id number] Relation to Subscriber:Self Name:Marion Hendrickson Subscriber ID:[id number] Payer ID:MEDICARE Group ID:Not on file Type:Medicare Address: [place] [phone] Care Teams Forklift Technician Relationship Specialty Start Date End Date Alisha Gutierrez APRN [address] [facility] [address] [place] [address] PCP - General 04/05/25
--- OUTSIDE RECORDS SUMMARY | 2025-04-26 09:51 | XMS_ITS | Encounter Summary ---
Author Organization Healthcare Address [address] [place] [address] Care Team Providers Care Wedding Decorator Name Role Phone Pcp, No Primary Care Provider Unavailabl e Reason for Visit * Reason Onset Date Comments HCN - Patient Message 02/09/2025 Encounter Details Date Type Department Care Team (Late st Contact Info) Description 02/09/2025 Telephone [facility] [address] [place] [address] None, None [address] [place] [address] HCN - Patient Message Social History Tobacco Use Types Packs/Day Years Used Date Smoking Tobacco: Never Assessed Comments Unknown Sex and Gender Information Value Date Recorded Sex Assigned at Not on file Legal Sex Female 2:31 PM EDT Gender Identity Not on file Sexual Orientation Not on file documented as of this encounter Miscellaneous Notes * Telephone Encounter - [place] - 02/24/2025 10:01 AM EDT Called patient and scheduled for next available Aravind appt * Telephone Encounter - Carmen H[place] - 02/09/2025 10:48 AM EDT Clinical Concern/Question 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 Referring office calling about referral placed 12/[address] Aravind Crump contact number: Jessi Rascon in referring office at [phone] Optimal time of day to reach caller: ANYTIME Additional comments/information from caller: Note: Please do not reply to this message. Follow-up communication and further actions as a result of this message need to be communicated with the patient directly, if the patient is not active onMyChart. If the patient is active on MyChart, they will receive notification of the communication/outcome via MyChart. documented in this encounter Plan of Treatment Upcoming Encounters Date Type Department Care Team (Late st Contact Info) Description 05/12/2025 11:00 AM EDT Appointment [facility] Pulmonary Function Testing [address] [place] [address] 07/12/2025 12:45 PM EDT Office Visit [facility] [address] [facility] [place] [address] Chester Nazario MD [address] [place] [address] documented as of this encounter Visit Diagnoses Not on filedocumented in this encounter Care Teams Wedding Decorator Relationship Specialty Start Date End Date Pcp, No [address] [place] [address] PCP - General Family Medicine 04/26/24 04/04/25 documented as of this encounter
--- OUTSIDE RECORDS SUMMARY | 2025-04-26 09:51 | XMS_ITS | Encounter Summary ---
Author Organization Healthcare Address [address] [place] [address] Care Team Providers Care Surveillance Officer Name Role Phone Pcp, No Primary Care Provider Unavaildevi e Alisha Gutierrez HOT PUNCH PRESS OPERATOR Primary Care Provider [phone] Reason for Referral * Consultation (Routine) - Authorized Specialty Diagnoses / Procedures Referred By Crow munroe Referred To Contact Cardiology Diagnoses ASD (atrial septal defect) Alisha Gutierrez APRN [address] [address] Phone: tel: fax: Chester Nazario MD [address] [place] [address] Phone: tel: fax: Referral ID Status Reason Start Date Expiration Date Visits Requested Visits Authorized [id number] Authorized Specialty Services Required 12/07/2024 06/08/2026 1 1 Encounter Details Date Type Department Care Team (Late st Contact Info) Description 12/07/2024 Community Orders Community Practice [address] [place] [address] Alisha Gutierrez HOT PUNCH PRESS OPERATOR [address] [place] [address] ASD (atrial septal defect) (Primary Dx) Social History Tobacco Use Types Packs/Day Years Used Date Smoking Tobacco: Never Assessed Comments Unknown Sex and Gender Information Value Date Recorded Sex Assigned at Not on file Legal Sex Female 2:31 PM EDT Gender Identity Not on file Sexual Orientation Not on file documented as of this encounter Plan of Treatment Upcoming Encounters Date Type Department Care Team (Late st Contact Info) Description 05/12/2025 11:00 AM EDT Appointment [facility] Pulmonary Function Testing [address] [place] [phone] 07/12/2025 12:45 PM EDT Office Visit [facility] [address] [facility] [place] [address] Chester Nazario MD [address] [place] [phone] Scheduled Referrals Name Type Priority Associated Diagnoses Order Schedule Ambulatory referral to [facility] Outpatient Referral Routine ASD (atrial septal defect) Ordered: 12/07/2024 documented as of this encounter Visit Diagnoses Diagnosis ASD (atrial septal defect)- Primary Ostium secundum type atrial septal defect documented in this encounter Care Teams Surveillance Officer Relationship Specialty Start Date End Date Pcp, No [address] [place] [address] PCP - General Family Medicine 04/26/24 04/04/25 Alisha Gutierrez, HOT PUNCH PRESS OPERATOR [address] [facility] [address] [place] [address] PCP - General 04/05/25 documented as of this encounter
== END 2025-04-26 23:59 | disposition home or self-care (01) ==
LOC: RAD 09:48
PROVIDERS: PCP Nurse Practitioner Family; Visit Provider Nurse Practitioner Family
DX: M19.072 Primary osteoarthritis, left ankle and foot (principal); M79.672 Pain in left foot; R60.9 Edema, unspecified
CPT/HCPCS: 73610; 73630

== ENCOUNTER 2025-06-30 06:53 | Outpatient (CLI) | payer MEDICARE, MEDICAID, SELFPAY ==
--- OUTSIDE RECORDS SUMMARY | 2024-08-03 04:30 | XMS_ITS | Continuity of Care Document ---
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 index [BMI] 28.0-28.9, adult Dietary Instructions for a healthy weight: BMI should be between the range of 18.5-24.9 for an adult; and Caloric intake should be around 3429-3584 for a female, and 1231-4866 for an adult male. Fiber intake should be about 14 grams for 1000 calories per day. That is about 20-30 grams daily. Good sources of fiber are oatmeal, fortified grains, and green leafy vegetables, apples. You can also use Carbohydrate counting to maintain a healthy weight. One serving is equal to 15 grams (1 piece of bread, small fruit, or 1 cup of milk). Men should have 45-75, Women about 30-65 per meal, and snacks are recommend to be 13-30 grams each. Myplate.gov is a good source for meal planning and dietary education. You may also refer to the [place] [employer] website for further low sodium, health heart diet information. Mediterainian diet would be a suitable diet for your current health conditions. Related to Body mass index [BMI] 27.0-27.9, adult It is recommended to stop smoking/vaping to increase overall health and decrease risk of cardiovascular disease. If you wish to stop smoking/vaping, there is a free online [place] from smoking course offered through our local health department. You may call [phone] for more information. Related to Nicotine dependence, cigarettes, uncomplicated Understands that he/ she is unlikely to ever be pain free. Patient has tried and failed non-opiate analgesic therapies. Goal of medication is to improve quality of life and perform ADLS. Patient is aware of the risks associated with controlled medications; including, but not limited to, dependence, addiction, and even . Aware of the importance of only taking medications as prescribed. AMY reports scanned into the patients record are reviewed and appropriate. Urine drug testing results are appropriate. Aware that any further increase in medication strength or frequency could warrant a referral to a Retail Branch Manager. Any questions regarding controlled medications were answered. Patient verbalized an understanding of all. Related to Chronic pain due to trauma Take medications as prescribed. Avoid known triggers (such as: caffeine, chocolate, irregular sleep cycles, increased stress, alcohol, fragrances, bright/strobing lights). If unsure of triggers, keep a daily journal to help recognize migraine patterns. Counseled that overuse of analgesics (especially OTC analgesics with caffeine), can cause rebound migraine headaches. Verbalizes an understanding of all. Related to Migraine Understands that he/ she is unlikely to ever be pain free. Patient has tried and failed non-opiate analgesic therapies. Goal of medication is to improve quality of life and perform ADLS. Patient is aware of the risks associated with controlled medications; including, but not limited to, dependence, addiction, and even . Aware of the importance of only taking medications as prescribed. AMY reports scanned into the patients record are reviewed and appropriate. Urine drug testing results are appropriate. Aware that any further increase in medication strength or frequency could warrant a referral to a Retail Branch Manager. Any questions regarding controlled medications were answered. Patient verbalized an understanding of all. Related to Phantom limb syndrome with pain Giving encouragement to exercise Related to Body mass index [BMI] 27.0-27.9, adult Lifestyle education regarding di et Related to Body mass index [BMI] 27.0-27.9, adult Assessments Type Assessment Date assessment Body mass index [BMI] 29.0-29.9, adult assessment Nicotine dependence, cigarettes, uncomplicated assessment Prediabetes assessment Essential (primary) hypertension assessment Hyperlipidemia, unspecified Mental Status Date Cognitive Assessment Orientation - [place] ed to time, place, person, situation.
--- OUTSIDE RECORDS SUMMARY | 2024-11-25 08:30 | XMS_ITS ---
Author Organization [facility] Address [address] [place] [address] Care Team Providers Care Pantry Steward/Stewardess Name Role Phone Ernesto Kenney Primary Care Provider Ernesto Kenney Unavailable Unavailable Alisha Yu Unavailable [phone] REASON FOR VISIT 3 Month F/U Encounters Encounter Location Date Provider Diagnosis [address] [address] 11/25/2024 Alisha Yu Plan Of Treatment Next Appt Details Provider Name:Alisha Wood, 10/03/2025 08:00:00 AM, [address], [address], [place], [address], Progress Notes * Marion MILLERDOB:[birth year] (45 yo F)Acc No.[id number]:11/25/2024 Progress Notes Patient: Marion DEAL Provider: Donald Yu APRN :1980 A ge:44 Y S ex:Female Date:11/25/2024 Address:[address], [id number] Pcp:Ernesto Kenney Subjective: * Chief Complaints: * 1 . 3 Month F/U. * Medical History: Objective: * Vitals: Assessment: Plan: * Treatment: * * Electronic signature of Nia Yu APRN on 06/30/2025 at 06:56 AM EDT Sign off status: Pending * Provider: Donald Yu APRN Date: 0 11/25/2024 Generated for Estela stiles/Bhavesh/Orion on: 1 06:56 AM EDT
--- OUTSIDE RECORDS SUMMARY | 2024-12-17 17:30 | XMS_ITS ---
Author Organization [facility] Address [address] [place] [address] Care Team Providers Care Twister Tender Name Role Phone Ernesto Kenney Primary Care Provider [phone] Ernesto Kenney Unavailable Unavailable Migration, Provider Unavailable Unavailable Allergies Allergen (clinical drug ingredient) Drug/Non Drug Allergy documented on EMR Reaction Allergy Type Onset Date Status naproxen Naproxen anaphylaxis Drug Allergy Activ e REASON FOR VISIT [facility] To [facility] Conversion Encounter Medications Medication SIG (Take, Route, Frequency, Duration) Notes Start Date End Date Status Furosemide 20 MG 1 tab(s) orally once a day; Duration: 30 days 11/17/2024 Active Gabapentin 600 MG 1 tab(s) orally 3 times a day; Duration: 30 days 12/01/2024 Active Erythromycin 5 MG/GM 1 andrew in each affected eye 4 times a day; Duration: 7 days 12/06/2024 Active Crestor 10 MG 1 tab(s) orally at night; Duration: 30 days 09/23/2024 Active Fluticasone Propionate 50 MCG/ACT 1 spray(s) in each nostril once a day; Duration: 30 days Active Amitriptyline HCl 75 MG 1 tab(s) orally once a day (at bedtime) Active MOBIC 15 MG 1 TAB(S) ORALLY ONCE A DAY *Please review for potential replacement for e-prescription and drug interaction check* Active Allergy Relief (Cetirizine) 10 MG 1 tab(s) orally once a day; Duration: 30 days 08/23/2024 Active Imitrex 100 MG 1 tab(s) orally once PRN Active Encounters Encounter Location Date Provider Diagnosis [facility] [address] [facility] [address] [facility] [address] [place] [address] 12/17/2024 Provider Migration Hordeolum externum of left upper eyelid H00.014 Assessments Encounter Date Diagnosis (ICD Code) Assessment Notes Treatment Notes Treatment Clinical Notes Section Notes 12/17/2024 Hordeolum externum of left upper eyelid (ICD-10 - H00.014) Plan Of Treatment Medication Medication Name Sig Start Date Stop Date Notes Erythromycin 5 MG/GM 1 andrew in each affec irina eye 4 times a day; Duration: 7 days 12/06/2024 Next Appt Details Provider Name:Alisha Zambranoon Francisco Daly, 10/03/2025 08:00:00 AM, [address] [facility] [address] [facility], [address], [place], [address], Progress Notes * Marion MILLERDOB:[birth year] (45 yo F)Acc No.[id number]:12/17/2024 Patient: Daina FORRESTERMarion Provider: Yeni howard Migration :1980 A ge:44 Y S ex:Female Date:12/17/2024 Address:[facility] [address] [facility] [place], [id number] Pcp:Ernesto Kenney Subjective: * Chief Complaints: * 1 . [facility] * Medical History: * Medications: T aking MOBIC 15 MG TABLET 1 TAB(S) ORALLY ONCE A DAY , Notes to Pharmacist: *Please review for potential replacement for e-prescription and drug interaction check*, Taking Amitriptyline HCl 75 MG Tablet 1 tab(s) orally once a day (at bedtime) , Taking Imitrex 100 MG Tablet 1 tab(s) orally once , Notes to Pharmacist: PRN, Taking Allergy Relief (Cetirizine) 10 MG Tablet 1 tab(s) orally once a day , Taking Fluticasone Propionate 50 MCG/ACT Suspension 1 spray(s) in each nostril once a day , Taking Crestor 10 MG Tablet 1 tab(s) orally at night , Taking Furosemide 20 MG Tablet 1 tab(s) orally once a day , Taking Gabapentin 600 MG Tablet 1 tab(s) orally 3 times a day * Allergies: N aproxen: anaphylaxis. Objective: * Vitals: Assessment: * Assessment: 1. H ordeolum externum of left upper eyelid - H00.014 Plan: * Treatment: * * Electronic signature of Prov ider Migration on 06/30/2025 at 06:56 AM EDT Sign off status: Pending * Provider: Yeni howard Migration Date: 0 12/17/2024 Generated for Estela stiles/Bhavesh/Hongsmitting on: 1 06:56 AM EDT
--- OUTSIDE RECORDS SUMMARY | 2025-03-07 07:15 | XMS_ITS ---
Author Organization [facility] Address [address] [facility] [address] [facility] [address] [place] [address] Care Team Providers Care Material Stockkeeper Yard Name Role Phone Ernesto Kenney Primary Care Provider [phone] Ernesto Kenney Unavailable Unavailable Alisha Yu Unavailable [phone] REASON FOR VISIT Med Ck Encounters Encounter Location Date Provider Diagnosis [facility] [address] [facility] [address] [place] [address] 03/07/2025 Alisha Yu Plan Of Treatment Next Appt Details Provider Name:Alisha Wood, 10/03/2025 08:00:00 AM, [address] [facility], [address], [place], [place], [address], Progress Notes * MILLERMarionDOB:[birth year] (45 yo F)Acc No.[id number]:03/07/2025 Progress Notes Patient: Marion DEAL Provider: Donald Yu APRN :1980 A ge:44 Y S ex:Female Date:03/07/2025 Address[address] [id number] Pcp:Ernesto Kenney Subjective: * Chief Complaints: * 1 . Med Ck. * Medical History: Objective: * Vitals: Assessment: Plan: * Treatment: * * Electronic signature of Nia Yu APRN on 06/30/2025 at 06:56 AM EDT Sign off status: Pending * Provider: Donald Yu APRN Date: 0 03/07/2025 Generated for Estela stiles/Bhavesh/Orion on: 1 06:56 AM EDT
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
--- OUTSIDE RECORDS SUMMARY | 2025-06-27 04:30 | XMS_ITS ---
Author Organization [facility] Address [address] [facility] [address] [facility] [address] [place] [address] Care Team Providers Care Field Account Manager Name Role Phone Ernesto Kenney Primary Care Provider [phone] Ernesto Kenney Unavailable Unavailable Alisha Yu Unavailable [phone] REASON FOR VISIT med ck Encounters Encounter Location Date Provider Diagnosis [facility] [address] [facility] [address] [place] [address] 06/27/2025 Alisha Yu Plan Of Treatment Next Appt Details Provider Name:Alisha Wood, 10/03/2025 08:00:00 AM, [address], [address], [place], [place], [address], Progress Notes * MILLER, MarionDOB:[birth year] (45 yo F)Acc No.[id number]:06/27/2025 Progress Notes Patient: Marion DEAL Provider: Donald Yu APRN :1980 A ge:45 Y S ex:Female Date:06/27/2025 Address[address] [place] Pcp:Ernesto Kenney Subjective: * Chief Complaints: * 1 . Med ck. * Medical History: Objective: * Vitals: Assessment: Plan: * Treatment: * * Electronic signature of Nia Yu APRN on 06/30/2025 at 06:56 AM EDT Sign off status: Pending * Provider: oDnald uY APRN Date: 1 Generated for Estela stiles/Bhavesh/Orion on: 1 06:56 AM EDT
--- OUTSIDE RECORDS SUMMARY | 2025-06-30 06:56 | XMS_ITS | Patient Health Record ---
Author Organization [facility] IVANA Address [address] [place] [address] Care Team Providers Care Order Entry Specialist Name Role Phone Ernesto Kenney Primary Care Provider Ernesto Kenney Unavailable Unavailable Alisha Yu Unavailable [phone] Migration, Provider Unavailable Unavailable Allergies Allergen (clinical drug ingredient) Drug/Non Drug Allergy documented on EMR Reaction Allergy Type Onset Date Status naproxen Naproxen anaphylaxis Drug Allergy Activ e Results Component Value Reference Range Notes H-HEPACUTE Reviewed date:09/27/2024 03:07:15 PM Interpretation: Performing Lab: Notes/Report: Cable Television Installer: Jazmin Raman MD, Phone: [phone] [facility] [place], [place] [id number] Performed at: [facility] Cable Television Installer: Emiliano Bonilla PhD, Phone: [phone] [address] [place], [place] [phone] Performed at: [facility]. positive HCV antibody. Consider repeat testing after one RNA is consistent with a resolved past infection or a false million IU/mL. Positive HCV antibody screen without the presence of HCV The quantitative range of this assay is 15 IU/mL to 100 HEPAM Negative Negative A negative anti-HAV IgM result suggests no recent or current HAV infection. HBSAG Negative Negative HBCM Negative Negative HCVAB2 Reactive Non Reactive HCQ HCV Not Detected . IU/mL [id number] Test not performed . IU/mL TESTINFO Comment . HCVINT1 Comment . COMPREHENSIVE METABOLIC PANE Tika (83686) Reviewed date:11/18/2024 02:29:05 PM Interpretation: Performing Lab:AMBAR Pay-Me-TapBookAuthor [id number] [facility] RochesterNazlXY[address] Kang Sheriff Notes/Report: NON-FASTING; NON-FASTING GLUCOSE 97 [...] 21 10-30 U/L ALT 28 6-29 U/L HEMOGLOBIN A1c (496) Reviewed date:11/18/2024 02:29:05 PM Interpretation: Performing Lab:AMBAR Pay-Me-TapBookAuthor [id number] Painting With A Twist [facility], [facility] RochesterMplmTJ[address] Kang Sheriff Notes/Report: NON-FASTING; NON-FASTING HEMOGLOBIN A1c [...] diagnosis of diabetes in children. According to Stateless Diabetes Association (ADA) guidelines, hemoglobin A1c <7.0% represents optimal control in non- diabetic patients. Different metrics may apply to specific patient populations. Standards of Medical Care in Diabetes(ADA). B TYPE NATRIURETIC PEPTIDE ( BNP) (40084) Reviewed date:11/18/2024 02:29:05 PM Interpretation: Performing Lab:CB, [facility] [id number], Manohar [id number] Kang Sheriff Notes/Report: NON-FASTING; NON-FASTING B TYPE NATRIURETIC PEPTIDE (BNP) 6 <100 pg/mL BNP levels increase with age in the general population with the highest values seen in individuals greater than 75 years of age. Reference: J. Am. Krystal. Cardiol. 2002; 40:976-982. X ray : Ankle, Left Reviewed date:04/27/2025 11:56:22 AM Interpretation: Performing Lab: Notes/Report: X ray : Foot, Left Reviewed date:04/28/2025 08:07:36 AM Interpretation: Performing Lab: Notes/Report: M-Complete Blood Count Auto Diff Reviewed date:09/24/2024 [...] 0.1 0.0-0.4 K/mm3 BA# 0.0 0-0.2 K/mm3 M-Comprehensive Metabolic Pa quang Reviewed date:09/23/2024 11:36:09 [...] AGRATIO 1.9 1.1-1.8 ALP 103 38-126 U/L M-Hemoglobin A1C Reviewed date:09/23/2024 11:36:09 AM Interpretation: Performing Lab: Notes/Report: HGBA1C 5.2 4.0-6.0 % < 6% Non-Diabetic Level < 7% Controlled Diabetic Level > 8% Poorly Controlled Diabetic Level M-Lipid Panel Reviewed date:09/23/2024 11:36:09 AM Interpretation: Performing Lab: Notes/Report: Patient Fasting? Y TRIG 169 30-150 mg/dl CHOL 236 140-200 mg/dl DLDL 152.81 100-129 mg/dL VLDL 34 0-40 mg/dL HDL 50 40-60 mg/dl CHLHDL 4.7 1-3.5 M-Thyroid Stimulating Hormon e Reviewed date:09/23/2024 11:36:09 AM Interpretation: Performing Lab: Notes/Report: TSH 2.46 0.465-4.68 uIU/mL H-HIVC Reviewed date:09/23/2024 11:36:09 AM Interpretation: Performing Lab: Notes/Report: HIVC NEGATIVE Negative All initial positives will be confirmed by 2 retests, if still positive they will be confirmed by [facility] Sendout. Reason For Referral Reason Echo Diagnosis 1 Leg edema (R60.0) Referral Organization [facility] ANSELMO Referring Provider First Name Alisha Referring Provider Last Name Aimee Referring Provider Speciality Family Pra ctice Referred Organization [facility] Referred Address [address] [place], [place],[address], Referred Provider Specialty Diagnostic R adiology General Notes Taryn Rascon 2024 05:11:52 PM >faxed to [facility] to schedule Referral Priority Routine Referral Appointment Date 11/25/[address] Nazario [facility] Diagnosis 1 ASD (atrial septal d efect) (Q21.10) Referral Organization [facility] Referring Provider First Name Alisha Referring Provider Last Name Aimee [facility] Organization Referrals Referred Address [address] [place], [place],[address], Referred Provider Specialty Cardiovascul ar Disease General Notes Taryn Rascon 2024 02:30:33 PM >placed through [facility], Taryn Rascon 02/22/2025 03:01:21 PM >sent again! Called and they could see the referral but it hadn't moved in their dept. They canceled it and started all over. Marked STAT, Taryn Rascon 02/24/2025 02:27:15 PM >Scheduled 04/05/2025 8:15 AM [facility] Chester Nazario MD Consult-Card Referral Priority Routine Referral Appointment Date 04/05/2025 Reason MRI left ankle Diagnosis 1 Acute left ankle alexander n (M25.572) Referral Organization [facility] Referring Provider First Name Alisha Referring Provider Last Name Aimee Referring Provider [facility] Referred Organization [facility] Referred Address [address] [facility] [address] [place], [place],[address], Referred Provider Specialty Diagnostic R adiology General Notes Taryn Rascon 2024 03:02:48 PM >sent to [facility] to schedule - no auth needed Referral Priority Routine Medications Medication SIG (Take, Route, Frequency, Duration) Notes Start Date End Date Status Crestor 10 MG 1 tab(s) orally at night; Duration: 90 days 09/23/2024 Active Imitrex 100 MG 1 tab(s) orally Once a day; Duration: 30 days As needed PRN Active Meloxicam 15 MG 1 tablet Orally Once a day; Duration: 90 days 01/16/2025 Active Fluticasone Propionate 50 MCG/ACT 1 spray(s) in each nostril once a day; Duration: 30 days Active Allergy Relief (Cetirizine) 10 MG 1 tab(s) orally once a day; Duration: 90 days Active Furosemide 20 MG 1 tab(s) orally once a day; Duration: 90 days As needed 11/17/2024 Active Amitriptyline HCl 75 MG 1 tab(s) orally once a day (at bedtime); Duration: 90 days Active Gabapentin 600 MG 1 tab(s) orally 3 ti mes a day; Duration: 30 days 06/29/2025 Active Lidocaine 5 % 1 to 2 patches remove after 12 hours Externally Once a day; Duration: 30 days As needed Active Immunizations Vaccine Route Administration Date Status [...] W/U Status Risk Notes Problem Primary insomnia (1569927) Primary insomnia (F51.01) Active confirmed Problem Mixed anxiety and depressive disorder (081856415) Depression with anxiety (F41.8) Active confirmed Problem Neuropathy (590796217) Neuropathy (G62.9) Active confirmed Problem Seasonal allergy (613986189) Seasonal allergies (J30.2) Active confirmed Problem Migraine with aura (0946210) Migraine with aura and without status migrainosus, not intractable (G43.109) Active confirmed Problem Hyperlipidaemia (52339561) Hyperlipidemia, unspecified hyperlipidemia type (E78.5) Active confirmed Problem Tobacco use (010426742) Tobacco use disorder (F17.200) Active confirmed Problem Amputated below knee (582431227) 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) Active confirmed Problem Atrial septal defect (disorder) (29111467) ASD (atrial septal defect) (Q21.10) Active confirmed Vital Signs Heart Rate 88 /min 06/08/2025 Temperature 97.9 degrees Fahrenheit 06/08/2025 Blood pressure diastolic 74 mm Hg 06/08/2025 Height 5ft 6in in 06/08/2025 Blood pressure systolic 124 mm Hg 06/08/2025 Weight 184.8 lbs 06/08/2025 BMI 29.82 kg/m2 06/08/2025 Encounters Encounter Location Date Provider Diagnosis [facility] [address] [facility] [address] [place] [address] 12/17/2024 Provider Migration Hordeolum externum of left upper eyelid H00.014 [facility] [address] [address] [place] [address] 08/23/2024 Alisha McNees Encounter for Medica re annual wellness exam [...] use F19.91 and Tobacco use disorder F17.200 [facility] [address] [address] [place] [address] 10/04/2024 Alisha McNees Neuropathy G62.9 ; H x of right BKA Z89.511 and History of drug use F19.91 [facility] [address] [place] [facility] [address] [place] [address] 11/17/2024 Alisha McNees Leg edema R60.0 ; Shortness of breath R06.02 and Hyperglycemia R73.9 [facility] [address] [facility] [address] [place] [address] 12/06/2024 Alisha McNees ASD (atrial septal defect) Q21.10 and Hordeolum externum of left upper eyelid H00.014 [facility] [address] [address] 03/06/2025 Alisha McNees Migraine with aura a nd without status migrainosus, not intractable G43.109 ; Primary insomnia F51.01 ; Neuropathy G62.9 ; Hx of right BKA Z89.511 ; Seasonal allergies J30.2 ; Hyperlipidemia, unspecified hyperlipidemia type E78.5 ; History of drug use F19.91 and Tobacco use disorder F17.200 [facility] [address] [facility] [address] [place] [address] 04/25/2025 Alisha McNees Acute left ankle alexander n M25.572 and Acute pain of left foot M79.672 [facility] [address] [facility] [address] [place] [address] 06/08/2025 Alisha McNees Primary insomnia F51.01 ; Migraine with aura and without status migrainosus, not intractable G43.109 ; Neuropathy G62.9 ; Hx of right BKA Z89.511 ; Seasonal allergies J30.2 ; Hyperlipidemia, unspecified hyperlipidemia type E78.5 ; History of drug use F19.91 ; Tobacco use disorder F17.200 and Acute left ankle pain M25.572 [facility] [address] [facility] [address] [place] [address] 08/16/2024 Ernesto Kenney [facility] [address] [facility] [address] [place] [address] 09/23/2024 Alisha McNees [facility] [address] [facility] [address] [place] [address] 03/06/2025 Alisha McNees Leg edema R60.0 [facility] [address] [facility] [address] [place] [address] 06/08/2025 Alisha McNees [facility] [address] [facility] [address] [place] [address] 08/29/2024 Alisha McNees [facility] [address] [facility] [address] [place] [address] 11/30/2024 Alisha McNees [facility] [address] [facility] [address] [place] [address] 12/22/2024 Alisha McNees Seasonal allergies J30.2 [facility] [address] [facility] [address] [place] [address] 12/22/2024 Alisha McNees Leg edema R60.0 [facility] [address] [place] [address] 12/28/2024 Ernesto Kenney [facility] [address] [place] [address] 01/16/2025 Alisha McNees Seasonal allergies J30.2 [facility] [address] [place] [address] 01/29/2025 Alisha McNees [facility] [address] [place] [address] 02/08/2025 Alisha McNees Leg edema R60.0 [facility] [address] [place] [address] 06/29/2025 Alisha McNees Neuropathy G62.9 Assessments Encounter Date Diagnosis (ICD Code) Assessment [...] is need for accommodations occurs. Paperwork for [employer] employment services completed, disability letter restricting hours [...] pain of left foot (ICD-10 - M79.672) 06/08/2025 Primary insomnia (ICD-10 - F51.01) Well controlled, no changes made today 06/08/2025 Migraine with aura and without status migrainosus, not intractable (ICD-10 - G43.109) Well controlled on triptan, uses rarely. Discussed hydration and need for regular, balanced meals, outdoor activities/exercis e and trigger (sunlight) etc - avoidance. Discussed using abortive meds rarely 06/29/2025 Neuropathy (ICD-10 - G62.9) 06/08/2025 Neuropathy (ICD-10 - G62.9) At baseline on mobic and gabapentin. CSA UTD and on chart. Aftab report reviewed and is appropriate - discussed ongoing use of controlled medication and safety associated with these medications. Add lidocaine patches prn 10/04/2024 History of drug use (ICD-10 - [...] of right BKA (ICD-10 - Z89.511) 06/08/2025 Hx of right BKA (ICD-10 - Z89.511) 06/08/2025 Seasonal allergies (ICD-10 - J30.2) Well controlled 08/23/2024 Depression with anxiety (ICD-10 - F41.8) Managing well without medications at this time. Keep appointment with counselor. 03/06/2025 Seasonal allergies (ICD-10 - J30.2) Well controlled 06/08/2025 Hyperlipidemia, unspecified hyperlipidemia type (ICD-10 - E78.5) On statin, tolerating well. Continue crestor, low saturated fat diet 03/06/2025 Hyperlipidemia, unspecified hyperlipidemia type (ICD-10 - E78.5) On statin, no myalgias. Continue crestor, low saturated fat diet 08/23/2024 Hx of right BKA (ICD-10 - Z89.511) 03/06/2025 History of drug use (ICD-10 - F19.91) See above 08/23/2024 Seasonal allergies (ICD-10 - J30.2) Reassurance no acute infection, start allergy meds as above 06/08/2025 History of drug use (ICD-10 - F19.91) In remission for over a year. 06/08/2025 Tobacco use disorder (ICD-10 - F17.200) Smoking cessation counseling provided 08/23/2024 Encounter for immunization (ICD-10 - Z23) 03/06/2025 Tobacco use disorder (ICD-10 - F17.200) Smoking cessation counseling provided 06/08/2025 Acute left ankle pain (ICD-10 - M25.572) No improvement despite rest, ice, brace and nsaids. Needs MRI, will arrange 08/23/2024 Prediabetes (ICD-10 - R73.03) Will check [...] Treatment Pending Test Test Name Order Date MRI : Ankle, Left 06/08/2025 Echocardiogram 11/17/2024 HIV 1/2 ANTIGEN/ANTIBODY,FOURTH GENERATI ON W/RFL (88663) 08/23/2024 LIPID PANEL, STANDARD (7600) 08/23/2024 HEPATITIS PANEL, ACUTE W/REFLEX TO CONFI RMATION (29845) 08/23/2024 COMPREHENSIVE METABOLIC PANEL (91116) CBC (INCLUDES DIFF/PLT) (6399) HEMOGLOBIN A1c (496) 08/23/2024 TSH (899) 08/23/2024 Next Appt Details Provider Name:Alisha Gutierrez Mc [place], 10/03/2025 08:00:00 AM, [address], [place], [address], Insurance Providers Payer Name Payer Address Payer Phone Subscriber Number Group Number Insured Name Patient Relationship to Insured Coverage Start Date Coverage End Date [place] [address] [place] [phone] [id number] Marion Hendrickson Self - patient is the insured Medical (General) History Medical History History ICD Code Migraine MDD Anxiety and Depression Renal Failure, sepsis Prediabetes Kidney Stones Surgical History Surgery Date(Month/Year) Left Ankle 2001 Right Leg BKA 2005 Total Hysterectomy 2012 Nerve Stimulator implanted and then kodi jeremias 2009 Left Knee Scar Tissue Removal 2007 [facility]
--- OUTSIDE RECORDS SUMMARY | 2025-06-30 06:56 | XMS_ITS | Encounter Summary ---
Author Organization Healthcare Address [address] [place] [address] Care Team Providers Care Ged Tutor Name Role Phone Pcp, No Primary Care Provider Unavaildevi e Alisha Gutierrez APRN Primary Care Provider [phone] Reason for Referral * Consultation (Routine) - Authorized Specialty Diagnoses / Procedures Referred By Crow munroe Referred To Contact Cardiology Diagnoses ASD (atrial septal defect) Alisha Gutierrez APRN [address] [facility] [address] [place] [address] Phone: tel: fax: Chester Nazario MD [address] [place] [address] Phone: tel: fax: Referral ID Status Reason Start Date Expiration Date Visits Requested Visits Authorized [id number] Authorized Specialty Services Required 12/07/2024 06/08/2026 1 1 Encounter Details Date Type Department Care Team (Late st Contact Info) Description 12/07/2024 Community Orders Community Practice [address] [place] [address] Alisha Gutierrez APRN [address] [facility] [address] [place] [address] ASD (atrial septal defect) (Primary Dx) Social [...] Care Team (Late st Contact Info) Description 07/12/2025 12:45 PM EDT Office Visit [facility] [place] [facility] [address] [facility] [place] [address] Chester Nazario MD [address] [place] [address] Scheduled Referrals Name Type Priority Associated Diagnoses Order Schedule Ambulatory referral to [facility] Outpatient Referral Routine ASD (atrial septal defect) Ordered: 12/07/2024 documented as of this encounter Visit Diagnoses Diagnosis ASD (atrial septal defect)- Primary Ostium secundum type atrial septal defect documented in this encounter Care Teams Ged Tutor Relationship Specialty Start Date End Date Pcp, No [address] [place] [address] PCP - General Family Medicine 04/26/24 04/04/25 Alisha Gutierrez, MANAGEMENT DEPARTMENT CHAIR [address] [place] [address] PCP - General 04/05/25 documented as of this encounter
--- OUTSIDE RECORDS SUMMARY | 2025-06-30 06:56 | XMS_ITS | Encounter Summary ---
Author Organization Healthcare Address [address] [place] [address] Care Team Providers Care Geophysical Support Specialist Name Role Phone Alisha Gutierrez MIGUEL Primary Care Provider [phone] Encounter Details Date Type Department Care Team (Late Contact Info) Description 05/16/2025 Results Follow-Up [facility] [address] [address] Kailey Jackson APRN, DNP [address] [place] [address] Social History Tobacco Use Types Packs/Day Years [...] Description 07/12/2025 12:45 PM EDT Office Visit [facility] [address] [facility] [address] [address] Chester Nazario MD [address] [place] [address] documented as of this encounter Visit Diagnoses [...] documented as of this encounter Care Teams Geophysical Support Specialist Relationship Specialty Start Date End Date Alisha Gutierrez, MIGUEL [facility] [place] [address] PCP - General 04/05/25 documented as of this encounter
--- OUTSIDE RECORDS SUMMARY | 2025-06-30 06:56 | XMS_ITS | Clinical Summary ---
Author Organization Healthcare Address [address] [place] [address] Care Team Providers Care 3D Modeler Name Role Phone Alisha Gutierrez MIGUEL Primary Care Provider [phone] Allergies Active Allergy Reactions Criticality Noted Date [...] Encounters Date Type Department Care Team Description 05/16/2025 Results Follow-Up [facility] [place] [facility] [address] [place] [address] Kailey Jackson APRN, RADHA 04/05/2025 9:23 AM EDT - 04/05/2025 11:59 PM EDT Hospital Encounter Cardiac Imaging [address] [place] [address] Palpitations Discharge Disposition: Home or Self Care 04/05/2025 8:15 AM EDT Office Visit [facility] [address] [facility] [place] [address] Chester Nazario MD Abnormal finding on echocardiogram (Primary Dx); Palpitations; Shortness of breath; Tobacco abuse 04/05/2025 Travel from Last 3 Months Immunizations Immunization Administration [...] Description 07/12/2025 12:45 PM EDT Office Visit [facility] [address] [facility] [place] [address] Chester Nazario MD [address] [place] [address] Health Maintenance Due Date Last Done Comments [facility]-HIV Screening 1980 [facility]-Hepatitis C Screening 1980 [facility]-Medicare Annual Wellness (AWV) 1980 [facility]-/Child/Adol SDOH Screenings 1980 [facility]-Varicella Vaccines (1 of [...] 2007 [facility]-Cervical Cancer Screening 2010 [facility]-HPV/Cotest 2010 CT Colonography 2025 Colonoscopy 2025 FIT-DNA 2025 FIT 2025 FOBT 2025 Sigmoidoscopy 2025 [facility]-Colorectal Cancer Screening 2025 [id number]-10 Vaccine (1 - season) 2025 [facility]-Influenza Vaccine (#1) 2025 [facility]-Depression Screening 04/05/2026 [...] on patient's age to complete this topic Procedures Procedure Name Priority Date/Time Associated Diagnosis Comments ADULT PATCH MONITOR - 14 DAY Routine 04/05/2025 9:39 AM EDT Palpitations from Last 3 Months Results * Adult Patch Monitor - 14 Day (04/05/2025 9:39 AM EDT) BSA 1.98 m2 BIOTELEMETRY Anatomical Region Laterality Modality Other Narrative 05/15/2025 8:53 AM EDT PRELIMINARY FINDINGS: Patient monitored for 6d 12h, analyzable time was 6d starting on 04/14/2025 08:22 am. Primary rhythm was Sinus Rhythm. Average heart rate was 82 bpm, Minimum heart rate was 55 bpm on Day / :20:20 am, Max heart rate was 115 bpm on Day :12:27 am SVE(s): [place] was 0.03 %, 239 total SVE(s) PVC(s): [place] was < 0.01 %, 4 total PVC(s), 1 disparate morphologies Patient recorded 2 event(s) during the monitoring period Physician Comments: 1) Patient's predominant rhythm is sinus rhythm with an average heart rate of 82 beats/minute. Minimum heart rate of 55 beats/minute and maximum heart rate of 115 beats/minute. 2) Patient had no sustained supraventricular or ventricular arrhythmias. 3) Patient reported a couple episodes of symptoms while wearing the monitor. No clinical arrhythmias associated with these symptoms 4) Patient had <1% premature supraventricular beat burden and a <1% premature ventricular beat burden. This is within the normal range. Chester Nazario MD [facility] C[facility] SERVICES PROCEDURES Final Result from Last 3 Months Insurance [address] [place] [address] MEDICARE Care Teams 3D Modeler Relationship Specialty Start Date End Date Alisha Gutierrez APRN [address] [place] [address] PCP - General 04/05/25
--- NOTE | 2025-06-30 06:59 | MR_ITS ---
FINAL REPORT CLINICAL HISTORY: ACUTE LEFT ANKLE PAIN. anterior ankle pain COMPARISON: None FINDINGS: Multiplanar and multisequence imaging of the left ankle was obtained without intravenous contrast. 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 There is near-complete loss of the cartilage of the tibiotalar joint. Several calcifications are seen adjacent to the medial malleolus, likely old avulsion fragments. Deformity of the talus is noted. There are findings to suggest prior surgery to the talus. No acute fracture identified. LIGAMENTS: The anterior talofibular ligament, posterior talofibular ligament and calcaneofibular ligament are grossly intact. The tibiofibular ligaments are intact. The calcaneofibular ligament is not well seen and may be chronically torn. The deltoid ligament is intermediate in signal intensity and may be chronically partially torn. TENDONS: The Achilles tendon is normal in size and signal intensity. The medial and lateral tendons are intact. OTHER SOFT TISSUES: There is a tibiotalar joint effusion with synovitis. Abnormal signal intensity is noted in the sinus tarsi. Nonspecific soft tissue edema is noted at the ankle. 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 Abnormal appearance of the talus favored to be related to surgery and possibly prior fracture. Indistinct calcaneofibular and deltoid ligaments, chronic partial tears not excluded. Reviewed, Interpreted and Dictated by Nayely Dutton MD Transcribed by Annabel Mclaughlin Authenticated and [facility]
== END 2025-06-30 23:59 | disposition home or self-care (01) ==
LOC: RAD 06:54
PROVIDERS: PCP Nurse Practitioner Family; Visit Provider Nurse Practitioner Family
DX: M19.072 Primary osteoarthritis, left ankle and foot (principal); R93.6 Abnormal findings on diagnostic imaging of limbs
CPT/HCPCS: 73721